=== PATIENT | male | born 1985 ===

== ENCOUNTER 2017-09-16 19:57 | Emergency (ER) | payer BC, OTHER ==
[2017-09-16 20:04] VITALS: BP 147/104; PULSE 78; RESP 16; TEMP 98; O2SAT 100
--- NOTE | 2017-09-16 21:14 | ED PDOC ---
HPI: Headache Time Seen by Provider: 09/16/17 20:23 Chief Complaint (Nursing): Weakness/Neurological Deficit Chief Complaint (Provider): Headache History Per: Patient History/Exam Limitations: no limitations Onset/Duration Of Symptoms: Days (x4) Current Symptoms Are (Timing): Still Present Quality: "Pain" Associated Symptoms: Other (left facial numbness) Additional Complaint(s): Calvin Chandler is a 32 year old male, with a past medical history of disc herniation in neck and lumbar, who presents to the emergency department complaining of left sided constant headache associated with intermittent left facial numbness onset for x4 days. Patient took Tylenol and Advil with no relief of symptoms. He reports pain with opening of the mouth. He denies any similar symptoms in the past. He denies any facial tingling, jaw pain, tooth pain, fever, chills, or difficulty swallowing. No further medical complaints. PMD: None provided. Against Medical Advice - AMA Patient Left Against Medical Advice: The patient declines admission to the hospital and wishes to leave the Emergency Department. This action is against my medical advice. This decision was made with informed refusal. The patient was told that admission to the hospital is necessary. Explanation of the reasons why were discussed. The risks of leaving were explained to the patient and include, but are not limited to, worsening of known or currently unknown conditions, permanent disability and from undiagnosed or untreated conditions. The patient has the capacity to make this informed decision and understands my explanation of the current medical problem and risks of leaving. The patient voluntarily accepts these risks and signed an AMA form documenting our conversation. The patient was given the opportunity to ask questions and reconsider. The patient was encouraged to return to the Emergency Department at any time for further care. Past Medical History Reviewed: Historical Data, Nursing Documentation, Vital Signs Vital Signs: Last Vital Signs Temp 98.0 F 09/16/17 20:02 Pulse 78 09/16/17 20:02 Resp 16 09/16/17 20:02 BP 147/104 H 09/16/17 20:02 Pulse Ox 100 09/16/17 20:02 - Medical History Other PMH: Disc herniation in neck and lumbar - Surgical History Surgical History: No Surg Hx - Family History Family History: States: Unknown Family Hx - Allergies Allergies/Adverse Reactions: Allergies Allergy/AdvReac Type Severity Reaction Status Date / Time codeine Allergy SWELLING Verified 09/16/17 20:02 Review of Systems ROS Statement: Except As Marked, All Systems Reviewed And Found Negative Constitutional: Negative for: Fever, Chills ENT: Negative for: Mouth Pain (Jaw or tooth pain) Neurological: Positive for: Numbness (left facial), Headache (left sided constant). Negative for: Other (no facial tingling) Physical Exam - Reviewed Nursing Documentation Reviewed: Yes Vital Signs Reviewed: Yes - Physical Exam Appears: Positive for: Non-toxic Head Exam: Positive for: ATRAUMATIC, NORMAL INSPECTION, NORMOCEPHALIC Skin: Positive for: Normal Color, Warm, Dry Eye Exam: Positive for: EOMI, PERRL, Other (increasing tearing in left eye) ENT: Positive for: Normal ENT Inspection (Ears normal) Neck: Positive for: Painless ROM, Supple Cardiovascular/Chest: Positive for: Regular Rate, Rhythm. Negative for: Murmur Respiratory: Positive for: Normal Breath Sounds. Negative for: Respiratory Distress Gastrointestinal/Abdominal: Positive for: Normal Exam, Soft. Negative for: Tenderness, Guarding, Rebound Extremity: Positive for: Normal ROM. Negative for: Deformity, Swelling Neurologic/Psych: Positive for: Alert, Oriented (x3), Gait (steady). Negative for: sail cutter II-XII, Motor/Sensory Deficits, Aphasia, Facial Droop - Laboratory Results Result Diagrams: 09/16/17 21:15 09/16/17 21:15 - ECG O2 Sat by Pulse Oximetry: 100 (RA) Pulse Ox Interpretation: Normal Medical Decision Making Medical Decision Making: Initial Impression: Left sided headache and left sided facial weakness. 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 Additionally rule out intracranial tumor or mass, and intracranial bleeding. Differential includes: Trigeminal neuralgia, TMJ dysfunction. Initial Plan: --Head w/o contrast [CT] --BMP --Drug screen, urine --CBC w/ differential --Erythrocyte sedimentation rate --reevaluation Reassess: --22:22 EXAM: CT Head Without Intravenous Contrast FINDINGS: Brain: Unremarkable. No hemorrhage. No significant white matter disease. No edema. Ventricles: Unremarkable. No ventriculomegaly. Bones/joints: Unremarkable. No acute fracture. Soft tissues: Unremarkable. Sinuses: Unremarkable as visualized. No acute sinusitis. Mastoid air cells: Unremarkable as visualized. No mastoid effusion. IMPRESSION: Normal head/brain CT. Thank you for allowing us to participate in the care of your patient. --22:55 EXAM: CT Orbits, Sella, Posterior Fossa or Auditory System Without Intravenous Contrast FINDINGS: Sella: Unremarkable. Mastoid air cells: Unremarkable mastoid air cells. Auditory system: Minimal mucosal thickening of the middle ear cavity bilaterally. Unremarkable internal auditory canals, inner ear structures, cerebellopontine angle cisterns. Bones/joints: No acute fracture. Soft tissues: Unremarkable. Sinuses: Small retention cysts in maxillary sinuses. No air-fluid levels. IMPRESSION: Minimal mucosal thickening of the middle ear cavity bilaterally. Clinical correlation and followup is recommended as clinically warranted. --23:[address] HENRY AND ALL FINDINGS OF CT SCAN AND PE DR. HENRY RECOMMENDS ADMITTANCE TO THE HOSPITAL OVERNIGHT AND MRI DISCUSSED RECOMMENDATIONS WITH PATIENT AND HE REFUSED TO STAY OVERNIGHT SO PATIENT WILL BE LEAVE AGAINST MEDICAL ADVICE Scribe Attestation: Documented by Dick Mitchell, acting as a scribe for Gilmer Boone MD Provider Scribe Attestation: All medical record entries made by the Scribe were at my direction and personally dictated by me. I have reviewed the chart and agree that the record accurately reflects my personal performance of the history, physical exam, medical decision making, and the department course for this patient. I have also personally directed, reviewed, and agree with the discharge instructions and disposition. Disposition - Clinical Impression Clinical Impression: Headache, Facial numbness, Left against medical advice - Patient ED Disposition Is Patient to be Admitted: No Discussed With : Tito Henry Counseled Patient/Family Regarding: Studies Performed, Diagnosis - Disposition Referrals: [facility] [Outside] Disposition: Against Medical Advice Disposition Time: 11:54 (patient refused to stay in the ED overnight against medical advice) Condition: FAIR Additional Instructions: Return tomorrow for MRI brain and neurological evaluation. Instructions: Acute Headache (ED), Paresthesia (ED), Against Medical Advice (ED ) Forms: [facility] ED School/Work Excuse
[2017-09-16 21:42] LABS: BLOOD UREA NITROGEN 15 mg/dl (9-20); CALCIUM 9.3 mg/dL (8.4-10.2); GFR AFRICAN-AMERICAN > 60; GFR NON-AFRICAN AMERICAN > 60
[2017-09-16 21:57] LABS: BASO # 0.1 K/uL (0.0-0.2); BASO % 0.8 % (0.0-2.0); EOS # 0.1 K/uL (0.0-0.7); EOS % 1.4 % (0.0-4.0); HEMOGLOBIN 15.3 g/dL (12.0-18.0); LYMPH # 2.6 K/uL (1.0-4.3); LYMPH % 31.8 % (20.0-40.0); MEAN CELL VOLUME 90.4 fl (80.0-94.0); MEAN CORPUSCULAR HEMOGLOBIN 30.4 pg (27.0-31.0); MEAN CORPUSCULAR HGB CONC 33.6 g/dL (33.0-37.0); MEAN PLATELET VOLUME 7.7 fl (7.2-11.7); MONO # 0.7 K/uL (0.0-0.8); MONO % 8.5 % (0.0-10.0); NEUT # 4.7 K/uL (1.8-7.0); NEUT % 57.5 % (50.0-75.0); NRBC % 0.1 % (0.0-0.0); RBC 5.02 Mil/uL (4.40-5.90); RED CELL DISTRIBUTION WIDTH 13.6 % (11.5-14.5); WHITE BLOOD COUNT 8.1 K/uL (4.8-10.8)
--- NOTE | 2017-09-17 09:24 | CT ---
PROCEDURE: CT HEAD WITHOUT CONTRAST. HISTORY: headache left sided COMPARISON: 02/13/2016 TECHNIQUE: Axial computed tomography images were obtained through the head/brain without intravenous contrast. Radiation dose: Total exam DLP = 920.59 mGy-cm. This CT exam was performed using one or more of the following dose reduction techniques: Automated exposure control, adjustment of the mA and/or kV according to patient size, and/or use of iterative reconstruction technique. FINDINGS: HEMORRHAGE: No intracranial hemorrhage. BRAIN: No mass effect or edema. No atrophy or chronic microvascular ischemic changes. VENTRICLES: Unremarkable. No hydrocephalus. CALVARIUM: Unremarkable. PARANASAL SINUSES: Unremarkable as visualized. No significant inflammatory changes. MASTOID AIR CELLS: Unremarkable as visualized. No inflammatory changes. OTHER FINDINGS: None. IMPRESSION: Normal CT of the Head. No intracranial mass, hemorrhage or evidence of acute infarct. Preliminary interpretation of this examination was reported by [facility] at 10:22 p.m. on 09/16/2017. There is concurrence of this report with the preliminary interpretation.
--- NOTE | 2017-09-17 13:59 | CT ---
PROCEDURE: CT OF THE TEMPORAL BONES WITHOUT CONTRAST HISTORY: left mastoid pain COMPARISON: None available. TECHNIQUE: High resolution axial images of the temporal bones were obtained. Coronal and sagittal reformats were generated. Radiation dose: Total exam DLP = 645.46 mGy-cm. This CT exam was performed using one or more of the following dose reduction techniques: Automated exposure control, adjustment of the mA and/or kV according to patient size, and/or use of iterative reconstruction technique. FINDINGS: RIGHT TEMPORAL BONE: RIGHT MIDDLE EAR: Normal. RIGHT INNER EAR: Cochlea: Normal. Semicircular canals: Normal. RIGHT MASTOID AIR CELLS: Normal. RIGHT INTERNAL AUDITORY CANAL: Normal. RIGHT EXTERNAL AUDITORY CANAL: Normal. RIGHT VESTIBULAR AND COCHLEAR AQUEDUCT: Normal. OTHER FINDINGS: None. LEFT TEMPORAL BONE: LEFT MIDDLE EAR: Normal. LEFT INNER EAR: Cochlea: Normal. Semicircular canals: Normal. LEFT MASTOID AIR CELLS: Normal. LEFT INTERNAL AUDITORY CANAL: Normal. LEFT EXTERNAL AUDITORY CANAL: Normal. LEFT VESTIBULAR AND COCHLEAR AQUEDUCTS: Normal. OTHER FINDINGS: Frontal sinus appears slightly underpneumatized. Minor polypoid like mucosal thickening or mucous retention cyst formation both maxillary antra. IMPRESSION: Unremarkable non contrast enhanced CT of the temporal bones. No evidence of acute mastoiditis or otitis media.
== END 2017-09-17 00:23 | disposition left against medical advice (07) ==
LOC: H.ER 19:57
DX: G51.0 Bell's palsy (principal)
CPT/HCPCS: 70450; 70480; 80048; 85025; 85651; 96374; 99283; J1885

== ENCOUNTER 2017-09-17 08:14 | Emergency (ER) | payer BC ==
[2017-09-17 08:17] VITALS: BMI 27.3
[2017-09-17 08:18] VITALS: TEMP 97.7
--- NOTE | 2017-09-17 10:20 | MRI ---
PROCEDURE: MRI BRAIN WITHOUT CONTRAST HISTORY: L headache and facial numbness COMPARISON: None. TECHNIQUE: Multiplanar, multisequence MR images of the brain were obtained without intravenous contrast enhancement. FINDINGS: HEMORRHAGE: None DWI: No evidence of an acute or early subacute infarction. BRAIN PARENCHYMA: No mass effect or edema. No atrophy or chronic microvascular ischemic changes. Minimal periventricular white matter signal abnormality, within normal limits. VENTRICLES: Unremarkable. No hydrocephalus. CRANIUM: Unremarkable. ORBITS: Grossly unremarkable. PARANASAL SINUSES/MASTOIDS: Clear VASCULAR SYSTEM: Skull base flow voids intact. OTHER FINDINGS: None. IMPRESSION: Unremarkable non contrast enhanced MRI of the brain.
--- NOTE | 2017-09-17 13:14 | ED PDOC ---
HPI: Headache Time Seen by Provider: 09/17/17 08:27 Chief Complaint (Nursing): Weakness/Neurological Deficit Chief Complaint (Provider): left headache and facial numbness History Per: Patient History/Exam Limitations: no limitations Onset/Duration Of Symptoms: Days (2), Gradual Current Symptoms Are (Timing): Intermittent Episodes Quality: Sharp, Aching Preceeding Symptoms: None Associated Symptoms: denies: Photophobia, Blurred Vision, Nausea, Vomiting, Extremity Weakness Additional History Per: Prior Records Additional Complaint(s): 32yo male seen last night for left sided headache associated with mild facial paresthesias, represents after signing AMA last night, now requesting completion of workip. He denies change speech/vision/strength/balance or sensation, states symptoms somewhat improved since last night. Past Medical History Reviewed: Historical Data, Nursing Documentation, Vital Signs Vital Signs: Last Vital Signs Temp 97.7 F 09/17/17 08:17 Pulse 57 L 09/17/17 08:17 Resp 17 09/17/17 08:17 BP 127/82 09/17/17 08:17 Pulse Ox 98 09/17/17 08:17 - Medical History PMH: Arthritis, Back Problems Other PMH: on chronic oxycodone - Family History Family History: States: Unknown Family Hx - Social History Drugs: Denies - Home Medications Home Medications: Ambulatory Orders Medication Instructions Recorded Pregabalin [Lyrica] 75 mg PO BID #14 cap 09/17/17 - Allergies Allergies/Adverse Reactions: Allergies Allergy/AdvReac Type Severity Reaction Status Date / Time codeine Allergy SWELLING Verified 09/16/17 20:02 Review of Systems ROS Statement: Except As Marked, All Systems Reviewed And Found Negative Cardiovascular: Negative for: Chest Pain, Palpitations Respiratory: Negative for: Cough, Shortness of Breath Gastrointestinal: Negative for: Nausea, Vomiting Genitourinary Male: Negative for: Dysuria Musculoskeletal: Negative for: Neck Pain Skin: Negative for: Rash, Lesions, Jaundice Neurological: Positive for: Numbness, Headache. Negative for: Weakness, Incoordination, Change in Speech, Seizures, Altered Mental Status, Dizziness Psych: Negative for: Depression Physical Exam - Reviewed Nursing Documentation Reviewed: Yes Vital Signs Reviewed: Yes - Physical Exam Appears: Positive for: Well, Non-toxic, No Acute Distress Head Exam: Positive for: ATRAUMATIC, NORMAL INSPECTION, NORMOCEPHALIC Skin: Positive for: Normal Color, Warm, DRY Eye Exam: Positive for: EOMI, Normal appearance, PERRL ENT: Positive for: Normal ENT Inspection Neck: Positive for: Normal, Painless ROM Cardiovascular/Chest: Positive for: Regular Rate, Rhythm Respiratory: Positive for: CNT, Normal Breath Sounds Gastrointestinal/Abdominal: Positive for: Normal Exam, Bowel Sounds, Soft. Negative for: Tenderness Back: Positive for: Normal Inspection Extremity: Positive for: Normal ROM Neurologic/Psych: Positive for: Alert, Oriented - ECG O2 Sat by Pulse Oximetry: 98 Medical Decision Making Medical Decision Making: Accession No. : [id number] Patient Name / ID : ALIYA GEORGE / [id number] Exam Date : 09/17/2017 09:19:28 ( Approved ) Study Comment : Sex / Age : M / 32Y Creator : Rivera Don MD Dictator : Rivera Don MD Travel Director : Flight Surveyor : Rivera Don MD Approver2 : Report Date : 09/17/2017 10:19:11 My Comment : PROCEDURE: MRI BRAIN WITHOUT CONTRAST HISTORY: L headache and facial numbness COMPARISON: None. TECHNIQUE: Multiplanar, multisequence MR images of the brain were obtained without intravenous contrast enhancement. FINDINGS: HEMORRHAGE: None DWI: No evidence of an acute or early subacute infarction. BRAIN PARENCHYMA: No mass effect or edema. No atrophy or chronic microvascular ischemic changes. Minimal periventricular white matter signal abnormality, within normal limits. VENTRICLES: Unremarkable. No hydrocephalus. CRANIUM: Unremarkable. ORBITS: Grossly unremarkable. PARANASAL SINUSES/MASTOIDS: Clear VASCULAR SYSTEM: Skull base flow voids intact. OTHER FINDINGS: None. IMPRESSION: Unremarkable non contrast enhanced MRI of the brain. --------- labs from last night reviewed and unremarkable Seen by Dr Henry neurology in ED, recommends outpt followup for possible occipital injections Disposition - Clinical Impression Clinical Impression: Occipital neuralgia - Patient ED Disposition Is Patient to be Admitted: No Counseled Patient/Family Regarding: Studies Performed, Diagnosis, Need For Followup, Rx Given - Disposition Disposition: Routine/Home Disposition Time: 13:01 Condition: STABLE Additional Instructions: See your pain specialist for further testing. If Lyrica requires pre-authorization by your insurance company you will need to see your PMD or neurologist or pain specialist for this. Prescriptions: Pregabalin [Lyrica] 75 mg PO BID #14 cap Instructions: Cervical Radiculopathy (ED), General Headache (ED) Forms: [employer] (Green[place]ic)
[2017-09-17 15:15] VITALS: BP 135/80; PULSE 75; RESP 16
--- NOTE | 2017-09-17 15:49 | CP.PCM.CON ---
History of Present Illness - History of Present Illness History of Present Illness: 32 yr old male who presented last night with headache that was 8/10, radiating from right cervical region to his occipital and then frontal regions, stabbing, exacerbated by movement, and alleviated by resting. There is no aphasia, no diplopia, no weakness, no visual obscurations, no recent mva, or head trauma, no recent change in medications. 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 He is on percocet daily, and has taken about 9 in the last several weeks. There is no other opiod or drug use history. He also complains of neck pain, 8/10, stabbing and radiating down his arms bilaterally. 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 Patient was here last night, left and returned this am. On my exam, he is normal neurologically, but does have pain on palpation of trapezius bilaterally. PMH/PSH : none FH/SH: no tobacco, social etoh. ALl: nkda. On exam: AAOX3. Pupils 3mm-2mm with light. EOMI. CN 2-12 intact. Motor: strength: 5/5 ul and ll bl. Sensory :intact ft, pin, positionand vibration sense. Gait: normal. No ataxia +2 dtr ul and ll bl. Bilateral hoffmans sign, toes downgoing no clonus Cerebellar: f.n no dysmetria. Past Patient History - Past Social History Drugs: Denies - MUSCULOSKELETAL/RHEUMATOLOGICAL Hx Arthritis: Yes - PSYCHIATRIC Hx Substance Use: No - SURGICAL HISTORY Hx Herniorrhaphy: Yes (x1 week) - ANESTHESIA Hx Anesthesia: No Meds Home Medications: Home Medication List Medication Instructions Recorded Confirmed Type Pregabalin [Lyrica] 75 mg PO BID #14 cap 09/17/17 Rx Allergies/Adverse Reactions: Allergies Allergy/AdvReac Type Severity Reaction Status Date / Time codeine Allergy SWELLING Verified 09/16/17 20:02 Results - Vital Signs Recent Vital Signs: Last Vital Signs Temp 97.7 F 09/17/17 08:17 Pulse 75 09/17/17 15:00 Resp 16 09/17/17 15:00 BP 135/80 09/17/17 15:00 Pulse Ox 100 09/17/17 15:00 Assessment & Plan - Assessment and Plan (Free Text) Assessment: 32 yr old male with what appears to be occipital neuralgia, most likely from cervical spine disesae, chronic in nature. Plan: 1. Occipital nerve block per pain management 2. Toradol and continue percocet 3. MRI C spine Thank you for this interesting consultation. We will follow.
[2017-09-21 13:34] VITALS: O2SAT 98
== END 2017-09-17 15:06 | disposition home or self-care (01) ==
LOC: H.ER 08:14
DX: G89.29 Other chronic pain (principal)
CPT/HCPCS: 70551; 96372; 99282; J1885